=== PATIENT | female | born 1975 | race Asian ===

== ENCOUNTER 2020-11-07 23:00 | Emergency (ER) | payer MEDICAID ==
[~2020-11-07] VITALS: Ht 154.9 cm; Wt 70.0 kg
[2020-11-07 23:05] VITALS: BP 122/47
[2020-11-08] MEDS ORDERED: ACETAMINOPHEN 325MG TABLET PO ONE (00:45)
[2020-11-08] MEDS ORDERED: BACITRACIN ZINC OINT UDPKT TOP ONE (01:00)
[2020-11-08] MEDS ORDERED: ACET-2708 MT (01:25)
== END 2020-11-08 01:56 | disposition home or self-care (01) ==
LOC: ER 23:00
DX: S60.445A External constriction of left ring finger, initial encounter (principal); W49.09XA Other specified item causing external constriction, initial encounter; Y93.89 Activity, other specified; Y92.89 Other specified places as the place of occurrence of the external cause; R73.03 Prediabetes; D25.9 Leiomyoma of uterus, unspecified
CPT/HCPCS: 99283

== ENCOUNTER 2021-12-22 23:17 | Emergency (ER) | payer MEDICAID ==
[~2021-12-22] VITALS: Ht 170.2 cm; Wt 70.1 kg
[~2021-12-22 23:17] MED LIST: ACET-2708 MT
[2021-12-23 00:13] VITALS: BP 123/49
[2021-12-23 02:42] LABS: EOSINOPHILS % 1.8 % (0.0-5.0); HEMATOCRIT. 34.1 % (36.0-48.0); HEMOGLOBIN. 11.7 g/dL (12.0-16.0); LYMPHOCYTES % 36.9 % (20.0-50.0); MEAN CORPUSCULAR HEMOGLOBIN 30.6 pg (28.0-32.0); MEAN PLATELET VOLUME 9.2 fl (7.4-10.4); MONOCYTES % 9.2 % (2.0-8.0); NEUTROPHILS % 51.1 % (40.0-76.0); PLATELET 341 x1000/uL (130-400); RED BLOOD CELL COUNT 3.83 mill/uL (4.2-5.4); RED CELL DISTRIBUTION WIDTH 13.8 % (11.6-14.6)
[2021-12-23 02:51] LABS: CHLORIDE 105 mEq/L (98-107)
[2021-12-23 02:53] LABS: CLARITY URINE CLEAR (CLEAR); COLOR URINE YELLOW (YELLOW); KETONES URINE NEGATIVE (NEGATIVE); LEUKOCYTE ESTERASE URINE NEGATIVE (NEGATIVE); NITRITE URINE NEGATIVE (NEGATIVE); OCCULT BLOOD URINE TRACE (NEGATIVE); PH URINE 6.5 (4.5-8.0); PROTEIN URINE NEGATIVE (NEGATIVE); SPECIFIC GRAVITY URINE 1.012 (1.005-1.030); UROBILINOGEN URINE 0.2 E.U./dL (0.2-1.0)
[2021-12-23] MEDS: ACETAMINOPHEN 325MG TABLET PO STA (03:48)
[2021-12-23] MEDS: SODIUM CHLORIDE 0.9% 500 ML IV ONE (03:48)
[2021-12-23] MEDS ORDERED: ACET-2708 MT (05:04)
== END 2021-12-23 05:37 | disposition home or self-care (01) ==
LOC: ER 23:17
DX: D25.9 Leiomyoma of uterus, unspecified (principal); Z90.49 Acquired absence of other specified parts of digestive tract
CPT/HCPCS: 36415; 76830; 76856; 80053; 81003; 81025; 85025; 86850; 86900; 86901; 93005; 99285; J7030